=== PATIENT | male | born 1950 | race Caucasian/White ===

== ENCOUNTER 2018-04-22 12:49 | Emergency (ER) | payer MEDICARE, BC ==
[~2018-04-22] VITALS: Ht 182.9 cm; Wt 90.0 kg
[2018-04-22] MEDS ORDERED: HYDR-3965 PO (14:45)
[2018-04-22 15:17] VITALS: BP 169/89
== END 2018-04-22 15:54 | disposition home or self-care (01) ==
LOC: ER 12:50
DX: S82.842A Displaced bimalleolar fracture of left lower leg, initial encounter for closed fracture (principal); S82.52XA Displaced fracture of medial malleolus of left tibia, initial encounter for closed fracture; Z86.73 Personal history of transient ischemic attack (TIA), and cerebral infarction without residual deficits; X50.1XXA Overexertion from prolonged static or awkward postures, initial encounter; Y93.89 Activity, other specified; Y92.89 Other specified places as the place of occurrence of the external cause; Y99.9 Unspecified external cause status
CPT/HCPCS: 29515; 73610; 99284